=== PATIENT | male | born 2000 | race Caucasian/White ===

== ENCOUNTER 2021-02-21 11:08 | Emergency (ER) | payer OTHER ==
[~2021-02-21] VITALS: Ht 180.3 cm; Wt 57.4 kg
[2021-02-21] MEDS ORDERED: NAPR500T6 PO (11:37)
[2021-02-21] MEDS ORDERED: ACETAMINOPHEN TAB 650MG DOSE (2X325MG) PO ONE (14:25)
[2021-02-21 16:25] VITALS: BP 119/62
== END 2021-02-21 16:26 | disposition home or self-care (01) ==
LOC: M ED 11:08
DX: M54.5 Low back pain (principal)